=== PATIENT | female | born 1985 | race Caucasian/White ===

== ENCOUNTER 2019-01-10 15:23 | Emergency (ER) | payer OTHER ==
--- NOTE | 2019-01-10 16:26 | ER ---
Nurse's Notes [facility] Name: Soheila Lux Age: 33 yrs Sex: Female : 1985 Arrival Date: 01/10/2019 Time: 15:28 Bed 24 Private MD: Diagnosis: Threatened Presentation: 01/10 15:30 Presenting complaint: Patient states: light pink vaginal bleeding started yesterday and sv today is has increased in the amount and is dark red. Lower abd cramping, nausea, decreased appetite. Reports being 5 weeks . Transition of care: patient was not received from another setting of care. Onset of symptoms was January 10, 2019. Care prior to arrival: None. 15:30 Method Of Arrival: Ambulatory sv 15:30 Acuity: AVIVA 3 sv 16:30 Risk Assessment: Do you want to hurt yourself or someone else? Patient reports no aa5 desire to harm self or others. Initial Sepsis Screen: Does the patient meet any 2 criteria? No. Patient's initial sepsis screen is negative. Does the patient have a suspected source of infection? No. Patient's initial sepsis screen is negative. 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 Pain: Denies pain. Neuro: aa5 Level of Consciousness is awake, alert, obeys commands, Oriented to person, place, time, situation. Cardiovascular: No deficits noted. Respiratory: Airway is patent Respiratory effort is even, unlabored, Respiratory pattern is regular, symmetrical. GI: Patient currently denies abdominal pain. : Reports vaginal bleeding that is bright red, moderate flow. EENT: No signs and/or symptoms were reported regarding the EENT system. Derm: Skin is pink, warm \T\ dry. Musculoskeletal: Range of motion: intact in all extremities. 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 Pt reports she had US completed yesterday at aa5 clinic. . Vital Signs: 15:31 BP 125 / 91; Pulse 94; Resp 16; Temp 98.8; Pulse Ox 98% ; Weight 90.72 kg; Height 5 ft. sv 5 in. (165.10 cm); Pain 5/10; 15:31 Body Mass Index 33.28 (90.72 kg, 165.10 cm) sv ED Course: 15:28 Patient arrived in ED. mr 15:31 Triage completed. sv 15:32 Arm band placed on. sv 15:[address] FNP-C is PHCP. kb 15:59 Saud Dorsey MD is Attending Physician. kb 16:10 Sharonda Burns, RN is Primary Nurse. ca1 Administered Medications: No medications were administered Outcome: 16:26 Discharge ordered by . kb 16:30 Patient left the ED. aa5 16:30 Discharged to home ambulatory, with family. aa5 16:30 Condition: stable 16:30 Discharge instructions given to patient, Instructed on discharge instructions, follow up and referral plans. Demonstrated understanding of instructions, follow-up care. Signatures: Skye St FNP-C FNP-Ckb Verde, Stephanie RN RN Bi Barbara JohnsonNatalee RN RN aa5 Sharonda Burns, RN RN ca1 Corrections: (The following items were deleted from the chart) 15:32 15:30 Presenting complaint: Patient states: light pink vaginal bleeding started sv yesterday and today is has increased in the amount and is dark red. Lower abd cramping. sv 15:51 15:30 Presenting complaint: Patient states: light pink vaginal bleeding started sv yesterday and today is has increased in the amount and is dark red. Lower abd cramping, nausea, decreased appetite. sv 16:53 16:51 Patient left the ED. kb aa5 16:58 16:00 : Reports vaginal bleeding that is bright red, moderate flow, aaReinier aaReinier
--- NOTE | 2019-01-10 16:26 | EDPHYS ---
Physician Documentation [facility] Name: Soheila Lux Age: 33 yrs Sex: Female : 1985 Arrival Date: 01/10/2019 Time: 15:28 Bed 24 Private MD: ED Physician Saud Dorsey HPI: 01/10 16:38 This 33 yrs old Female presents to ER via Ambulatory with complaints of kb Vaginal Bleeding, + Preg <12wks. 16:38 The patient presents to the emergency department with vaginal bleeding, that is light. kb course: care: none, Leakage of Fluid: none appreciated, Ultrasound: the patient had an ultrasound, Risk/complications: no obvious risks or complications are appreciated. Previous pregnancies: in previous pregnancies patient has had. Associated signs and symptoms: Pertinent positives: vaginal bleeding. The patient has not experienced similar symptoms in the past. The patient has been recently seen by a physician: an public information specialist specialist, yesterday, with similar presenting complaints, lab tests were done, an ultrasound was done. Pt reports she recently found out she was and doesn't want to be. [facility] yesterday. Had blood work and US done. US did not show any signs of . Reports they told her the ovaries, tubes and uterus were all normal, but no was seen. Quantitative Hcg results obtained by phone and was 499. Pt reports she is supposed to follow up in 2 weeks to have repeat US and blood work so that she can have a D\T\C. Reports she was having vaginal bleeding prior to having transvaginal US yesterday, but the bleeding is a little heavier now so she came to see if she was having a miscarriage. Wanted to have a repeat US to confirm. Denies abd pain. 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 16:37 Abdomen/GI: Positive for abdominal pain, Negative for nausea, vomiting, and diarrhea. 16:37 : Positive for vaginal bleeding. Exam: 16:37 Constitutional: This is a well developed, well nourished patient who is awake, alert, kb and in no acute distress. Head/Face: Normocephalic, atraumatic. Chest/axilla: Normal chest wall appearance and motion. Nontender with no deformity. No lesions are appreciated. Cardiovascular: Regular rate and rhythm with a normal S1 and S2. No gallops, murmurs, or rubs. Normal PMI, no JVD. No pulse deficits. Respiratory: Lungs have equal breath sounds bilaterally, clear to auscultation and percussion. No rales, rhonchi or wheezes noted. No increased work of breathing, no retractions or nasal flaring. Back: No spinal tenderness. No costovertebral tenderness. Full range of motion. Skin: Warm, dry with normal turgor. Normal color with no rashes, no lesions, and no evidence of cellulitis. MS/ Extremity: Pulses equal, no cyanosis. Neurovascular intact. Full, normal range of motion. Neuro: Awake and alert, GCS 15, oriented to person, place, time, and situation. Cranial nerves II-XII grossly intact. Motor strength 5/5 in all extremities. Sensory grossly intact. Cerebellar exam normal. Normal gait. 16:37 Abdomen/GI: Inspection: abdomen appears normal, Bowel sounds: normal, in all quadrants, Palpation: soft, in all quadrants, mild abdominal tenderness, in all quadrants. Vital Signs: 15:31 BP 125 / 91; Pulse 94; Resp 16; Temp 98.8; Pulse Ox 98% ; Weight 90.72 kg; Height 5 ft. sv 5 in. (165.10 cm); Pain 5/10; 15:31 Body Mass Index 33.28 (90.72 kg, 165.10 cm) sv MDM: 15:59 Patient medically screened. kb 16:31 Data reviewed: vital signs, nurses notes. Data interpreted: Pulse oximetry: on room air kb is 98 %. Interpretation: normal. Counseling: I had a detailed discussion with the patient and/or guardian regarding: the historical points, exam findings, and any diagnostic results supporting the discharge/admit diagnosis, the need for outpatient follow up, an OB/Gyne specialist, to return to the emergency department if symptoms worsen or persist or if there are any questions or concerns that arise at home. 16:32 ED course: Pt educated that we can repeat quantitative Hcg and US today. Educated that kb different US findings are unlikely since the last US was yesterday, but recommended a follow up US in 7-10 days. Educated that Quantitative Hcg results would be more helpful because the numbers should increase if the is progressing. Pt elected not to have any blood work or repeat US done today. Will follow up with clinic as planned. Educated to return for increased bleeding, dizziness, shortness of breath or pain. Verbal understanding received. . 01/10 15:50 Order name: Urine Dipstick--Ancillary (enter results) eb 01/10 15:50 Order name: Urine --Ancillary (enter results) eb Administered Medications: No medications were administered Disposition: 01/10/19 16:26 Discharged to Home. Impression: Threatened . - Condition is Stable. - Discharge Instructions: Threatened Miscarriage, Spak-pf-Lafl. - Medication Reconciliation Form, Thank You Letter, Antibiotic Education, Prescription Opioid Use form. - Follow up: Emergency Department; When: As needed; Reason: Worsening of condition. Follow up: Private Physician; When: 2 - 3 days; Reason: Recheck today's complaints, Continuance of care, Re-evaluation by your physician. Addendum: 01/13/2019 07:10 Co-signature as Attending Physician, Saud Dosrey MD I agree with the assessment and c arrieta plan of care. Signatures: Dispatcher [employer] Skye Shipman, MENDY CURTIS-Juanis Avelar RN RN sv Anderson, Corey, MD MD cha Corrections: (The following items were deleted from the chart) 01/10 16:51 15:59 IV Saline Lock ordered. hector mckeon 16:51 15:59 Labs collected and sent ordered. hector mckeon 16:51 15:59 NPO ordered. hector mckeon 16:51 16:00 CBC+H.LAB.BRZ ordered. EDMS EDMS 16:51 16:26 01/10/2019 16:26 Discharged to Home. Impression: Threatened . Condition kb is Stable. Forms are Medication Reconciliation Form, Thank You Letter, Antibiotic Education, Prescription Opioid Use. Follow up: Emergency Department; When: As needed; Reason: Worsening of condition. Follow up: Private Physician; When: 2 - 3 days; Reason: Recheck today's complaints, Continuance of care, Re-evaluation by your physician. kb
[2019-01-10 16:51] LABS: Urine Blood 2+ (NEG); Urine Glucose NEGATIVE (NEG); Urine Protein NEGATIVE (NEG); Urine Specific Gravity 1.025 (1.005-1.030)
== END 2019-01-10 16:51 | disposition home or self-care (01) ==
LOC: ER 15:23
DX: O20.0 Threatened abortion (principal); Z3A.12 12 weeks gestation of pregnancy; K50.90 Crohn's disease, unspecified, without complications; Z88.0 Allergy status to penicillin
CPT/HCPCS: 81003; 81025; 99281

== ENCOUNTER 2021-06-18 13:25 | Emergency (ER) | payer BC, SELFPAY ==
--- OUTSIDE RECORDS SUMMARY | 2021-06-18 13:29 | XMS REPORT | Continuity of Care Document ---
:1985 Author Organization [facility] t Address [address] [place] [address] Care Team Providers Name Role Phone Ashley Epstein MD Attending Clinician Problems This patient has no known problems. Allergies, Adverse Reactions, Alerts This patient has no known allergies or adverse reactions. Medications This patient has no known medications. Procedures This patient has no known procedures. Encounters Start End Encounter Admission Attending Care Care Encounter Source Date/Time Date/Time Type Type Clinicians Facility Department ID 2021-06-07 2021-06-07 Case [facility] [id number] 00:00:00 00:00:00 Management Lili Mike [id number] [place] [id number] [facility] [id number] [address] 2021-06-06 2021-06-06 Telephone [facility] [id number] 00:00:00 00:00:00 Lili Ramirez Rashid [id number] [place] [id number] [facility] [id number] [address] 2021-06-01 2021-06-01 Office [facility] [id number] 15:27:31 16:26:46 Visit Lili Mike [id number] [place] [id number] [facility] [phone] [address] Results This patient has no known results.
[2021-06-18] MEDS ORDERED: DIPHENHYDRAMINE 25 MG TAB/CAP ONE (14:30)
[2021-06-18] MEDS ORDERED: dexAMETHasone 10 MG/ML VIAL ONE (14:30)
[2021-06-18] MEDS ORDERED: FAMOTIDINE 20 MG TAB ONE (14:30)
--- NOTE | 2021-06-18 16:08 | ER ---
Nurse's Notes [facility] Name: Soheila Long Age: 35 yrs Sex: Female : 1985 Arrival Date: 06/18/2021 Time: 13:26 Bed 12 Private MD: Diagnosis: Urticaria, unspecified Presentation: 06/18 13:36 Chief complaint: Patient states: swelling to lips, hands, started having hives on neck iw and hairline, was on abx two weeks ago for UTI, last dose was 8 days ago, also her boyfriends daughter tested positive for COVID , has taken benadryl. 13:37 Coronavirus screen: At this time, the client does not indicate any symptoms associated iw with coronavirus-19. Ebola Screen: Patient negative for fever greater than or equal to 101.5 degrees Fahrenheit, and additional compatible Ebola Virus Disease symptoms Patient denies exposure to infectious person. Patient denies travel to an Ebola-affected area in the 21 days before illness onset. No symptoms or risks identified at this time. Onset: The symptoms/episode began/occurred yesterday. Anaphylaxis evaluation, no signs or symptoms of anaphylaxis were noted. Initial Sepsis Screen: Does the patient meet any 2 criteria? No. Patient's initial sepsis screen is negative. Does the patient have a suspected source of infection? No. Patient's initial sepsis screen is negative. Risk Assessment: Do you want to hurt yourself or someone else? Patient reports no desire to harm self or others. Onset of symptoms was June 17, 2021. 13:37 Method Of Arrival: Ambulatory iw 13:37 Acuity: AVIVA 3 iw Historical: - Allergies: 13:40 PENICILLINS; iw - Home Meds: 13:40 Pentasa Oral 4 times per day [Active]; iw - PMHx: 13:40 Crohn's; iw - PSHx: 13:40 bowel resection; section; carpal tunnel; tubes removed; iw Screenin:57 Abuse screen: Denies threats or abuse. Nutritional screening: No deficits noted. vg1 Tuberculosis screening: No symptoms or risk factors identified. Fall Risk None identified. Assessment: 13:55 General: Appears in no apparent distress. comfortable, Behavior is calm, cooperative. vg1 Pain: Complains of pain in right hand and left hand Pain currently is 5 out of 10 on a pain scale. Pain began 1 day ago. Neuro: Level of Consciousness is awake, alert, obeys commands, Oriented to person, place, time, situation. Cardiovascular: Patient's skin is warm and dry. Respiratory: Airway is patent Respiratory effort is even, unlabored, Breath sounds are clear bilaterally. GI: No signs and/or symptoms were reported involving the gastrointestinal system. : No signs and/or symptoms were reported regarding the genitourinary system. EENT: Throat is clear. Derm: Skin is intact, is healthy with good turgor. Musculoskeletal: Circulation, motion, and sensation intact. 15:03 Reassessment: Patient appears in no apparent distress at this time. No changes from vg1 previously documented assessment. Patient and/or family updated on plan of care and expected duration. Pain level reassessed. Patient is alert, oriented x 3, equal unlabored respirations, skin warm/dry/pink. 16:26 Reassessment: Patient appears in no apparent distress at this time. No changes from vg1 previously documented assessment. Patient and/or family updated on plan of care and expected duration. Pain level reassessed. Patient is alert, oriented x 3, equal unlabored respirations, skin warm/dry/pink. Vital Signs: 13:37 BP 135 / 85; Pulse 98; Resp 16; Temp 99.5; Pulse Ox 100% on R/A; iw 13:57 BP 117 / 75; Pulse 90; Resp 16; Pulse Ox 99% ; vg1 15:07 BP 120 / 95; Pulse 92; Resp 16; Pulse Ox 98% on R/A; vg1 16:00 BP 107 / 72; Pulse 88; Resp 16; Pulse Ox 97% on R/A; vg1 ED Course: 13:26 Patient arrived in ED. as 13:40 Triage completed. iw 13:41 Arm band placed on. iw 13:47 Stanislav Mcgregor NP is PHCP. pm1 13:47 Saud Dorsey MD is Attending Physician. pm1 13:55 Zena Dubon, SINA is Primary Nurse. vg1 13:57 Patient has correct armband on for positive identification. Call light in reach. vg1 13:58 No provider procedures requiring assistance completed. vg1 14:41 COVID swab sent to lab. vg1 16:27 Patient did not have IV access during this emergency room visit. vg1 Administered Medications: 14:08 Drug: Pepcid (famotidine) 20 mg Route: PO; vg1 16:01 Follow up: Response: No adverse reaction vg1 14:08 Drug: Benadryl (diphenhydrAMINE) 25 mg Route: PO; vg1 16:01 Follow up: Response: No adverse reaction vg1 14:10 Drug: Decadron (dexamethasone) 10 mg Route: IM; Site: right deltoid; vg1 16:02 Follow up: Response: No adverse reaction vg1 Outcome: 16:07 Discharge ordered by . pm1 16:27 Discharged to home ambulatory. vg1 16:27 Condition: stable 16:27 Discharge instructions given to patient, Instructed on discharge instructions, follow up and referral plans. medication usage, Demonstrated understanding of instructions, follow-up care, medications, Prescriptions given X 3. 16:27 Patient left the ED. vg1 Signatures: Dilcia Tanner Irene, RN RN iw Stanislav Mcgregor NP [employer] pm1 Zena Dubon RN RN vg1 Corrections: (The following items were deleted from the chart) 13:40 13:36 Chief complaint: Patient states: swek iw iw
--- NOTE | 2021-06-18 16:08 | EDPHYS ---
Physician Documentation [facility] Name: Soheila Long Age: 35 yrs Sex: Female : 1985 Arrival Date: 06/18/2021 Time: 13:26 Bed 12 Private MD: JONAH Physician Saud Dorsey HPI: 06/18 13:59 This 35 yrs old Female presents to ER via Ambulatory with complaints of pm1 Allergic Reaction, Lips Swelling. 13:59 The patient presents with itching, rash, Swelling of upper lip. Onset: The pm1 symptoms/episode began/occurred yesterday. Associated signs and symptoms: Pertinent positives: hives, Pertinent negatives: chest pain, nausea, shortness of breath, vomiting. Possible causes: The patient has no known obvious cause for the symptoms. At home the patient or guardian has treated the symptoms with Benadryl. Severity of symptoms: in the emergency department the symptoms are unchanged. The patient has not experienced similar symptoms in the past. The patient has not recently seen a physician. Patient is concerned that her rash and swelling to her upper lip is possibly related to Covid exposure. Historical: - Allergies: 13:40 PENICILLINS; iw - Home Meds: 13:40 Pentasa Oral 4 times per day [Active]; iw - PMHx: 13:40 Crohn's; iw - PSHx: 13:40 bowel resection; section; carpal tunnel; tubes removed; iw ROS: 13:59 Constitutional: Negative for fever, chills, and weight loss, ENT: Negative for injury, pm1 pain, and discharge, Cardiovascular: Negative for chest pain, palpitations, and edema, Respiratory: Negative for shortness of breath, cough, wheezing, and pleuritic chest pain, Abdomen/GI: Negative for abdominal pain, nausea, vomiting, diarrhea, and constipation, MS/Extremity: Negative for injury and deformity. 13:59 Skin: Positive for rash, diffusely, Swelling to mid section of upper lip. 13:59 All other systems are negative. Exam: 13:59 Constitutional: This is a well developed, well nourished patient who is awake, alert, pm1 and in no acute distress. Head/Face: Normocephalic, atraumatic. 13:59 Back: No spinal tenderness. No costovertebral tenderness. Full range of motion. 13:59 Eyes: Exam is negative for acute changes, Extraocular movements: no acute changes, Conjunctiva: no acute changes, no injection. 13:59 ENT: Exam is negative for acute changes, Mouth: Lips: normal, Oral mucosa: normal, pink and intact, moist, Posterior pharynx: is normal, airway is patent. 13:59 Cardiovascular: Exam negative for acute changes, Rate: normal, Rhythm: regular, Pulses: no pulse deficits are appreciated. 13:59 Respiratory: Exam negative for acute changes, respiratory distress, shortness of breath, Breath sounds: are clear throughout. 13:59 Skin: Appearance: normal except for affected area, consistent with urticaria, on the neck, Mild swelling present to mid section of upper lip. 13:59 Neuro: Exam negative for acute changes, Orientation: is normal, Mentation: is normal, Motor: is normal, moves all fours. Vital Signs: 13:37 BP 135 / 85; Pulse 98; Resp 16; Temp 99.5; Pulse Ox 100% on R/A; iw 13:57 BP 117 / 75; Pulse 90; Resp 16; Pulse Ox 99% ; vg1 15:07 BP 120 / 95; Pulse 92; Resp 16; Pulse Ox 98% on R/A; vg1 16:00 BP 107 / 72; Pulse 88; Resp 16; Pulse Ox 97% on R/A; vg1 MDM: 13:47 Patient medically screened. pm1 15:23 Data reviewed: vital signs. Data interpreted: Pulse oximetry: on room air is 98 %. pm1 Interpretation: normal. 16:06 Counseling: I had a detailed discussion with the patient and/or guardian regarding: the pm1 historical points, exam findings, and any diagnostic results supporting the discharge/admit diagnosis, lab results, the need for outpatient follow up, to return to the emergency department if symptoms worsen or persist or if there are any questions or concerns that arise at home. 06/18 16:05 Order name: SARS-COV-2 RT PCR; Complete Time: 16:06 EDMS Administered Medications: 14:08 Drug: Pepcid (famotidine) 20 mg Route: PO; vg1 16:01 Follow up: Response: No adverse reaction vg1 14:08 Drug: Benadryl (diphenhydrAMINE) 25 mg Route: PO; vg1 16:01 Follow up: Response: No adverse reaction vg1 14:10 Drug: Decadron (dexamethasone) 10 mg Route: IM; Site: right deltoid; vg1 16:02 Follow up: Response: No adverse reaction vg1 Disposition: 06/19 09:21 Co-signature as Attending Physician, Saud Dorsey MD I agree with the assessment and samantha plan of care. Disposition Summary: 06/18/21 16:07 Discharge Ordered Location: Home pm1 Problem: new pm1 Symptoms: have improved pm1 Condition: Stable pm1 Diagnosis - Urticaria, unspecified pm1 Followup: pm1 - With: Emergency Department - When: As needed - Reason: Worsening of condition Followup: pm1 - With: Private Physician - When: 2 - 3 days - Reason: Recheck today's complaints, Continuance of care, Re-evaluation by your physician Discharge Instructions: - Discharge Summary Sheet pm1 - Hives pm1 Forms: - Medication Reconciliation Form pm1 - Thank You Letter pm1 - Antibiotic Education pm1 - Prescription Opioid Use pm1 Prescriptions: - Benadryl 25 mg Oral Capsule - take 1 capsule by ORAL route every 6 hours As needed; 30 tablet; Refills: 0, pm1 Product Selection Permitted - Pepcid 20 mg Oral Tablet - take 1 tablet by ORAL route every 12 hours for 10 days; 20 tablet; Refills: 0, pm1 Product Selection Permitted - Prednisone 20 mg Oral Tablet - take 3 tablets by ORAL route once daily for 5 days; 15 tablet; Refills: 0, pm1 Product Selection Permitted Signatures: Dispatcher [employer] Saud Arango MD MD cha Williams, Irene, RN Stanislav Shah NP [employer] pm1 Zena Dubon RN RN vg1 Corrections: (The following items were deleted from the chart) 06/18 15:05 14:35 CORONAVIRUS+BRZ ordered. [facility]
[2021-06-18 16:32] VITALS: TEMP 99.5
[2021-06-18 16:36] VITALS: BP 107/72; O2SAT 97
== END 2021-06-18 16:27 | disposition home or self-care (01) ==
LOC: ER 13:25
DX: L50.9 Urticaria, unspecified (principal); Z20.822 Contact with and (suspected) exposure to COVID-19; Z88.0 Allergy status to penicillin
CPT/HCPCS: 96372; 99283; J1100; U0003